=== PATIENT | male | born 1965 | race Two or more races ===

== ENCOUNTER 2025-01-11 17:07 | Emergency (ER) | payer MEDICARE, MEDICAID ==
[~2025-01-11] VITALS: Ht 170.2 cm; Wt 66.0 kg
[2025-01-11] MEDS ORDERED: CALCIUM CHLOR(10%) 100MG/ML 10ML SYRINGE IV ONE (17:08)
[2025-01-11 17:15] VITALS: PULSE 140; RESP 17; O2SAT 100
[2025-01-11] MEDS: MIDAZOLAM DRIP 50 mg/50mL 50 ML IV SCH (17:15)
--- NOTE | 2025-01-11 17:17 | ED.PDOC ---
CPR-HPI HPI Comments 55 y.o male with PMHx of DM, CAD and ESRD, presents to the ED via EMS post ROSC. EMS reports patient is coming from [facility] facility where he currently resides. Staff members found patient unresponsive in his room. On scene, EMS placed patient on AutoPulse initiating CPR and states BG read 22. Patient was intubated, received D10 on scene and a total of 3 epi prior to ED arrival. EMS reports 21 minutes of down time and were able to gain ROSC prior to ED arrival at 1647. Patient's BG now is at 102 and patient is initiating spontaneous respirations, assisted with bagging. Time Seen by MD: 17:08 Reviewed Notes: Nurses Notes, Resident Caregiver Notes, Medications, Allergies Allergies: Coded Allergies: NO KNOWN ALLERGIES (Unverified , 01/11/25) Information Source: Emergency Med Personnel Mode of Arrival: EMS Timing: Minutes Duration: Total time prior hopital: (21 minutes ) Onset: Unknown Available Hx: Unknown Inital rhythm: Undetermined Treatment: CPR, Epinephrine (3) Response: Sustained return of pulse Associated signs and symptoms: Unknown Past Medical History PAST MEDICAL HISTORY: CAD, DM, ESRD Surgical History: Unobtainable Family History Family History: Unobtainable Social History Smoker: Unobtainable Alcohol: Unobtainable Drugs: Unobtainable Lives In: Assisted Care Unable to Obtain due to: Medical Urgency, Other (Obtainable. Patient is intu bated.) Physical Exam General Appearance: Other (Chronically ill-appearing) HEENT: Other (Pupils symmetric and fixed, ETT in place with blood in oropharynx) Neck: Full Range of Motion, Normal Inspection Respiratory: Accessory Muscle Use, Decreased Breath Sounds (Right base), Rhonchi, Other (Initiates spontaneous respirations using accessory muscles, bilateral coarse breath sounds with bagging, diminished breath sounds at right base. Approximate 1.5 cm linear midline open wound with exposed bone fractures.) Cardiovascular: No Edema, No JVD, Regular Rate/Rhythm Breast Exam: Deferred Gastrointestinal: Soft, Other (Nondistended) Genitalia: Other (Unremarkable) Pelvic: Deferred Rectal: Deferred Extremities: Other (Recent left AKA wound clean, dry, with allison in place. No edema.) Neurologic: Other (GCS 3) Cerebellar Function: NOT DONE Reflexes: NOT DONE Skin: Dry, Pallor, Warm, Wounds (Left buttock unstageable approximate 6 x 6 decubitus ulcer) Peripheral Pulses: 2+ carotid (R), 2+ carotid (L); 1+ femoral (R), 1+ femoral (L) Lymphatic: NOT DONE EKG EKG : Comments AFib, rate 133, QRS interval prolonged at 123, normal QTC interval, normal axis, multiple PVCs, lateral ST depression with other nonspecific T changes Was a procedure done? 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 Physician Indication: Hypotension, CVP monitoring, Volume resuscitation Cosmetician performed hand hygien: Yes Maximal sterile barrier precau: Sterile gown, Sterlie gloves Skin Preparation: Chlorhexidine gluconate Skin preparation completely dr: Yes Insertion site: Right, Femoral Central line catheter type: Vbb-[id number] dialysis Number of lumens: 3 Central line exchanged over a: Yes Antiseptic ointment applied to: No Post Assessment: Proper placement Informed consent obtained: No Risks/benefits/alt described: No Differential Dx CPR Differential Diagnosis: Cardiopulmonary arrest, Cardiogenic shock, Electrolyte disorder, Heart Block, Myocardial Infarction, Pneumothorax, Pulmonary Embolus, Respiratory Failure X-Ray, Labs, Meds, VS Vital Signs Date Time Temp Pulse Resp B/P (MAP) Pulse Ox O2 Delivery O2 Flow Rate FiO2 01/11/25 22:12 84 29 86/35 (52) 85 100 01/11/25 22:00 96.4 82 27 86/35 (52) 88 96.4 01/11/25 21:45 96.6 87 28 94/40 (58) 74 96.6 01/11/25 21:30 97.0 97 27 131/75 (93) 72 97.0 01/11/25 21:25 0 Mechanical Ventilator 84 01/11/25 21:15 97.0 93 21 139/73 (95) 92 97.0 01/11/25 21:10 92 01/11/25 21:08 131/75 01/11/25 21:00 97.3 84 31 65/35 (45) 85 97.3 01/11/25 21:00 75/42 01/11/25 20:45 97.5 93 26 68/36 (47) 100 97.5 01/11/25 20:30 97.5 87 28 75/42 (53) 100 97.5 01/11/25 20:15 97.5 88 27 93/61 (72) 100 97.5 01/11/25 20:00 101 27 93/61 (72) 100 01/11/25 19:59 98 01/11/25 19:45 101 26 98/63 (75) 99 01/11/25 19:45 90 27 102/62 (75) 100 60 01/11/25 19:30 88 26 102/62 (75) 100 01/11/25 19:30 102/62 01/11/25 19:30 92 20 100 Mechanical Ventilator+ 100 100 01/11/25 19:15 103 24 109/59 (76) 100 01/11/25 19:00 79 29 100/67 (78) 100 01/11/25 18:45 109 23 110/59 (76) 100 01/11/25 18:45 110/59 01/11/25 18:23 110 01/11/25 18:20 100 80 01/11/25 18:15 94 19 137/62 (87) 100 01/11/25 18:00 109 29 99/61 (74) 100 01/11/25 17:45 119/73 01/11/25 17:45 122 26 119/73 (88) 100 01/11/25 17:40 127 01/11/25 17:38 130 25 128/50 (76) 100 100 01/11/25 17:30 126 23 131/33 (65) 100 01/11/25 17:15 128/50 01/11/25 17:15 140 17 100 Mechanical Ventilator+ 100 100 01/11/25 17:15 97.7 140 17 128/50 (76) 100 97.7 01/11/25 17:11 123 01/11/25 17:07 97.7 129 22 128/50 100 97.7 Lab Test 01/11/25 20:39 01/11/25 19:10 01/11/25 18:24 01/11/25 17:48 Range/Units Lactic Acid Level 16.9 *H 15.0 *H 0.4-2.0 mmol/L Troponin I High Sensitivity 1442 *H 1180 *H 1014 *H </=54 ng/L Blood Gas Specimen Type Arterial Blood Gas Sample Site Right brachial Blood Gas Patient Temperature 37.0 Arterial Blood Date Drawn [id number] Arterial Blood pH 7.189 *L 7.350-7.450 Arterial Blood Partial Pressure CO2 33.2 L 35.0-48.0 mmHg Arterial Blood Partial Pressure O2 140.9 H 83.0-108.0 mmHg Arterial Blood HCO3 12.4 L 21.0-28.0 mmol/L Arterial Blood Oxygen Saturation 98.0 94.0-98.0 % Arterial Blood Base Excess -14.7 L -2.0-3.0 mmol/L Arterial Blood Oxyhemoglobin 97.2 94.0-98.0 % Arterial Blood Carboxyhemoglobin 0.3 L 0.5-1.5 % Arterial Blood Methemoglobin 0.5 0.0-1.5 % Ilan Test N/a Blood Gas Total Hemoglobin 10.00 L 13.5-17.5 g/dL Blood Gas Set Respiration Rate 20.0 Blood Gas Modality Vent - ac FiO2 % 100.0 Blood Gas Tidal Volume 450.0 Blood Gas PEEP or CPAP 5.0 Blood Gas Critical Value Read Back Yes Blood Gas Notified Whom Md los manuel Blood Gas Notified Time [id number] Blood Gas Notified By Rt hyacinth hinton White Blood Count 7.9 4.4-10.8 10^3/uL Red Blood Count 3.05 L 4.5-5.90 10^6/uL Hemoglobin 9.8 L 13.5-17.5 g/dL Hematocrit 32.1 L 41.0-53.0 % Mean Corpuscular Volume 105.1 H 80.0-100.0 fL Mean Corpuscular Hemoglobin 32.1 H 28.0-32.0 pg Mean Corpuscular Hemoglobin Concent 30.6 L 32.0-36.0 g/dL Red Cell Distribution Width 17.8 H 11.8-14.3 % Platelet Count 50 L 140-450 10^3/uL Mean Platelet Volume 11.0 H 6.9-10.8 fL Neutrophils (%) (Auto) 37.0-80.0 % Lymphocytes (%) (Auto) 10.0-50.0 % Monocytes (%) (Auto) 0.0-12.0 % Basophils (%) (Auto) 0.0-2.0 % Neutrophils # (Auto) 1.6-8.6 10 ^3/uL Lymphocytes # (Auto) 0.4-5.4 10 ^3/uL Monocytes # (Auto) 0-1.3 10 ^3/uL Differential Total Cells Counted 100.0 100 Neutrophils % (Manual) 70 37.0-80.0 Band Neutrophils % (Manual) 15 Lymphocytes % (Manual) 12 10.0-50.0 Monocytes % (Manual) 2 0-12 Eosinophils % (Manual) 1 0-7 Basophils % (Manual) 0 0.0-2.0 Metamyelocytes % (manual) 0 Myelocytes % (Manual) 0 Promyelocytes % (Manual) 0 Blast Cells % (Manual) 0 Reactive Lymphocytes 0 Platelet Estimate Decreased Anisocytosis (manual) Slight Macrocytosis Slight Prothrombin Time 16.9 H 9.3-11.8 sec Prothrombin Time INR 1.68 H 0.9-1.15 Activated Partial Thromboplast Time 37.1 H 24.5-34.5 SEC Sodium Level 140 136-145 mmol/L Potassium Level 4.2 3.5-5.1 mmol/L Chloride Level 97 L 98-107 mmol/L Carbon Dioxide Level 16 L 20-31 mmol/L Anion Gap 27 H 5-15 Blood Urea Nitrogen 36 H 9-23 mg/dL Creatinine 3.73 H 0.700-1.30 mg/dL Glomerular Filtration Rate Calc 18 >90 mL/min BUN/Creatinine Ratio 9.7 L 10.0-20.0 Serum Glucose 94 74-106 mg/dL Calcium Level 9.3 8.7-10.4 mg/dL Total Bilirubin 0.9 0.2-1.0 mg/dL Aspartate Amino Transferase (AST) 102 H 13-40 U/L Alanine Aminotransferase (ALT) 47 H 7-40 U/L Alkaline Phosphatase 156 H 46-116 U/L B-Type Natriuretic Peptide > 5000.00 0-100 pg/mL Total Protein 7.0 5.7-8.2 g/dL Albumin 3.0 L 3.2-4.8 g/dL Test 01/11/25 17:25 Range/Units Urine Color Light-orange Yellow Urine Clarity Ex.turbid Clear Urine pH 8.5 5.0-9.0 Urine Specific Ranson 1.014 1.001-1.035 Urine Protein 2+ H Negative Urine Ketones Negative Negative Urine Blood 1+ H Negative /uL Urine Nitrite Negative Negative Urine Bilirubin Negative Negative Urine Urobilinogen Normal Negative mg/dL Urine Leukocyte Esterase Negative Negative /uL Urine RBC 48 0 - 3 /hpf Urine Microscopic WBC 12 H 0-3 /HPF Urine Squamous Epithelial Cells Mod <5 /hpf Urine Amorphous Crystals Few None Seen /hpf Urine Bacteria Few H None Seen /hpf Urine Hyaline Casts Mod 0 - 2 /lpf Urine Mucus Few None Seen Urine Glucose Normal Normal mg/dL Current Medications Medications (Trade) Dose Ordered Sig/Sloan Route Start Time Stop Time Status Last Admin Amiodarone HCl 100 ml @ 600 mls/hr ONCE ONCE IV 01/11/25 17:30 01/11/25 17:39 DC 01/11/25 17:51 Amiodarone HCL/ Dextrose 200 ml @ 33.33 mls/ hr ONCE ONCE IV 01/11/25 17:30 01/11/25 23:30 01/11/25 18:11 Midazolam HCl 50 ml @ 1 mls/hr Q24H IV 01/11/25 18:00 01/11/25 17:15 Sodium Chloride 1,000 ml @ 1,000 mls/hr Q1H ONCE IV 01/11/25 18:00 01/11/25 18:59 DC 01/11/25 18:15 Dopamine HCl/ Dextrose 250 ml @ 12.375 mls/ hr [id number] ONCE IV 01/11/25 21:00 01/12/25 17:12 01/11/25 21:08 Norepinephrine Bitartrate 250 ml @ 3.75 mls/hr Q24H IV 01/11/25 20:55 01/11/25 21:00 PROCEDURE(s): CXRP - CHEST PORTABLE REASON: fulll arrest ORDER NUMBER(s): [id number], ACCESSION NUMBER(s): [id number] EXAM: XY CHEST PORTABLE HISTORY: fulll arrest TECHNIQUE: 1 view of the chest COMPARISON: EKG on DOS: 03/06/22 FINDINGS/IMPRESSION: LUNGS: Large area of hazy alveolar opacification in the right mid to lower lung zone. Additional interstitial opacities in the left lung base. Correlate for infiltrate. MEDIASTINUM: Unremarkable BONES: No acute osseous abnormality OTHER: Endotracheal tube 5.6 cm above the angélica. Enteric tube in the proximal stomach. X-Ray, Labs, Meds, VS Comment 59-year-old male with a history of end-stage renal disease, CAD, diabetes brought in by EMS status post ROSC after being found in full arrest Vitals remarkable for temperature 97, respiratory rate 21, oxygen saturation 92% on high-flow oxygen Exam remarkable for open wound midsternal area with exposed bone fragments, diminished breath sounds on the right, recent left AKA, left buttock unstageable decubitus ulcer Rhythm strip independently interpreted by me: AFib RVR, rate 133, multiple PVC Chest x-ray LUNGS: Large area of hazy alveolar opacification in the right mid to lower lung zone. Additional interstitial opacities in the left lung base. Correlate for infiltrate. OTHER: Endotracheal tube 5.6 cm above the angélica. Enteric tube in the proximal stomach. CBC unremarkable, CMP remarkable for chloride 97, CO2 16, BUN 36, creatinine 3.373, AST 102, ALT 47, alkaline phos 156, BNP greater than 5000, troponin 1014, lactate 15, UA abnormal consistent with UTI, ABG pH 7.189, pCO2 12.4, PO2 140.9 Patient treated with the following in the ED: 1 L 0.9 normal saline IV bolus, amiodarone IV per protocol, cefepime 2 g IV, Levophed infusion Shortly after arrival I discussed the case with Dr. Rogers who was on-call for STEMI, as the EKG obtained by EMS showed some ST-elevation. He reviewed the EMS EKG as well as to consecutive EKGs performed here in the ED on arrival. He did not feel this patient's presentation was consistent with STEMI and recommended medical management. Patient experienced progressive hypotension leading to Saroj asystole during his stay. Code blue was initiated, and the patient received multiple IV push medications including epinephrine, atropine, sodium bicarb, D50 and calcium. Please see code note for details. We were able to establish ROSC. Dopamine infusion was then added. Patient will require ICU admission. Time of 1ST Reevaluation: 17:13 Reevaluation 1ST: Unchanged Patient Education/Counseling: Pt Unresponsive Family Education/Counseling: No Family Present SEPSIS Sepsis Screen Time Sepsis recognized/suspect: 17:30 Physician Orders Chest Portable (01/11/25 17:18) Heplock Iv (01/11/25 17:18) Bleach Boiler Packer (01/11/25 17:18) Blood Pressure (01/11/25 17:18) Pulse Oximetry (01/11/25 17:18) Electrocardigram (01/11/25 17:18) Electrocardigram (01/11/25 18:18) Electrocardigram (01/11/25 20:18) Amiodarone 360mg/200ml Premix (Nexterone (01/11/25 17:30) Ventilator Setup (01/11/25 17:20) Abg W/ Co-Ox (01/11/25 17:31) Respiratory Culture W/ Gs (01/11/25 17:31) Place Og Tube (01/11/25 17:37) Ng/Orogastric Tube To Lis (01/11/25 17:37) Communication Order (01/11/25 17:37) Midazolam Drip 50 Mg/50ml (Versed Drip 5 (01/11/25 18:00) Rass Sedation Scale Q1HR (01/11/25 17:49) Accucheck (01/11/25 17:50) Blood Culture (01/11/25 17:50) Notify Md If Map <65 Or Bp<90 (01/11/25 17:50) If Map<65 Start Vasopressor (01/11/25 17:50) Sepsis Reassesment After Fluid (01/11/25 18:50) * Wound Consult (01/11/25 ) Dopamine 1600mcg/Ml D5w (01/11/25 21:00) Norepinephrine 8 Mg/250ml Kit (Levophed) (01/11/25 20:55) Ventilator Orders (01/11/25 21:55) Chest Xray 1 View (01/11/25 22:17) Cefepime 1gm/50ml (Maxipime 1gm/50ml) (01/11/25 22:30) Vital Signs Date Time Temp Pulse Resp B/P (MAP) Pulse Ox O2 Delivery O2 Flow Rate FiO2 01/11/25 22:12 84 29 86/35 (52) 85 100 01/11/25 22:00 96.4 82 27 86/35 (52) 88 96.4 01/11/25 21:45 96.6 87 28 94/40 (58) 74 96.6 01/11/25 21:30 97.0 97 27 131/75 (93) 72 97.0 01/11/25 21:25 0 Mechanical Ventilator 84 01/11/25 21:15 97.0 93 21 139/73 (95) 92 97.0 01/11/25 21:10 92 01/11/25 21:08 131/75 01/11/25 21:00 97.3 84 31 65/35 (45) 85 97.3 01/11/25 21:00 75/42 01/11/25 20:45 97.5 93 26 68/36 (47) 100 97.5 01/11/25 20:30 97.5 87 28 75/42 (53) 100 97.5 01/11/25 20:15 97.5 88 27 93/61 (72) 100 97.5 01/11/25 20:00 101 27 93/61 (72) 100 01/11/25 19:59 98 01/11/25 19:45 101 26 98/63 (75) 99 01/11/25 19:45 90 27 102/62 (75) 100 60 01/11/25 19:30 88 26 102/62 (75) 100 01/11/25 19:30 102/62 01/11/25 19:30 92 20 100 Mechanical Ventilator+ 100 100 01/11/25 19:15 103 24 109/59 (76) 100 01/11/25 19:00 79 29 100/67 (78) 100 01/11/25 18:45 109 23 110/59 (76) 100 01/11/25 18:45 110/59 01/11/25 18:23 110 01/11/25 18:20 100 80 01/11/25 18:15 94 19 137/62 (87) 100 01/11/25 18:00 109 29 99/61 (74) 100 01/11/25 17:45 119/73 01/11/25 17:45 122 26 119/73 (88) 100 01/11/25 17:40 127 01/11/25 17:38 130 25 128/50 (76) 100 100 01/11/25 17:30 126 23 131/33 (65) 100 01/11/25 17:15 128/50 01/11/25 17:15 140 17 100 Mechanical Ventilator+ 100 100 01/11/25 17:15 97.7 140 17 128/50 (76) 100 97.7 01/11/25 17:11 123 01/11/25 17:07 97.7 129 22 128/50 100 97.7 Laboratory Tests Test 01/11/25 17:48 01/11/25 19:10 01/11/25 20:39 White Blood Count 7.9 10^3/uL (4.4-10.8) Lactic Acid Level 15.0 mmol/L (0.4-2.0) *H 16.9 mmol/L (0.4-2.0) *H Medications Medications Dose Ordered Sig/Sloan Route Start Time Stop Time Status Last Admin Dose Admin Amiodarone HCl 100 ml @ 600 mls/hr ONCE ONCE IV 01/11/25 17:30 01/11/25 17:39 DC 01/11/25 17:51 Amiodarone HCL/ Dextrose 200 ml @ 33.33 mls/ hr ONCE ONCE IV 01/11/25 17:30 01/11/25 23:30 01/11/25 18:11 Dopamine HCl/ Dextrose 250 ml @ 12.375 mls/ hr [id number] ONCE IV 01/11/25 21:00 01/12/25 17:12 01/11/25 21:08 Midazolam HCl 50 ml @ 1 mls/hr Q24H IV 01/11/25 18:00 01/11/25 17:15 Norepinephrine Bitartrate 250 ml @ 3.75 mls/hr Q24H IV 01/11/25 20:55 01/11/25 21:00 Sodium Chloride 1,000 ml @ 1,000 mls/hr Q1H ONCE IV 01/11/25 18:00 01/11/25 18:59 DC 01/11/25 18:15 Reassessment Post Fluid SEPSIS FOCUS EXAM(REASSESSMENT Sepsis reassessment focused exam completed. Date: 01/11/25 Time 23:24 CBC see per kg fluid bolus was not administered due to the patient's history of end-stage renal disease. Aggressive fluid hydration could cause harm. Departure 1 Departure Time of Disposition: 19:00 Impression: Primary Impression: Cardiopulmonary arrest Additional Impressions: Sternal fracture Qualified Codes: S22.20XB - Unspecified fracture of sternum, initial en counter for open fracture Pneumonia Sepsis Elevated troponin Disposition: ADMITTED INPATIENT Admit to: ICU Condition: Critical Critical Care Note Critical Care Time?: Yes (1 hr-critical care time only) Critical care comment: Critical care time including multiple bedside re-evaluations, review of lab and imaging studies, and discussion of the case with the admitting provider. Pat ient is high risk for respiratory, hemodynamic and/or metabolic decompensation. Heart Score Heart Score: Heart Score Response (Comments) Value History N/A 0 EKG N/A 0 Age N/A 0 Risk Factors N/A 0 Troponin N/A 0 Total 0 Stability Stability form required: No I personally scribed for PRACHI BAY MD ([email or web address]) on 01/11/25 at 17:17. Electronically submitted by Angella Rodriguez ([facility]). PRACHI BAY MD Jan 11, 2025 17:17
[2025-01-11] MEDS: MIDAZOLAM DRIP 50 mg/50mL 50 ML IV ONE ×2 (17:20→20:28)
[2025-01-11] MEDS ORDERED: MIDAZOLAM HCL 2MG/2ML 2ml VIAL (1mg/ml) IV ONE (17:30)
[2025-01-11 17:38] VITALS: BP 128/50; PULSE 130; RESP 25; O2SAT 100
[2025-01-11] MEDS: AMIODARONE BOLUS KIT 100 ML IV ONE (17:51)
[2025-01-11] MEDS ORDERED: AMIODARONE BOLUS KIT 100 ML IV ONE (17:51)
[2025-01-11] MEDS: AMIODARONE 360mg/200mL PREMIX 200 ML IV ONE ×3 (17:53→23:11)
[2025-01-11] MEDS: SODIUM CHLORIDE 0.9% 1,000 ML IV ONE (18:15)
[2025-01-11 18:20] VITALS: O2SAT 100
[2025-01-11 18:25] LABS: Anion Gap 27 (5-15); BUN/Creatinine Ratio 9.7 (10.0-20.0); Bilirubin, Total 0.9 mg/dL (0.2-1.0); Calcium 9.3 mg/dL (8.7-10.4); Glucose 94 mg/dL (74-106); Potassium 4.2 mmol/L (3.5-5.1); Sodium 140 mmol/L (136-145); Total Protein 7.0 g/dL (5.7-8.2)
[2025-01-11 18:34] LABS: Alanine Aminotransferase 47 U/L (7-40); Albumin 3.0 g/dL (3.2-4.8); Alkaline Phosphatase 156 U/L (46-116); Blood Urea Nitrogen 36 mg/dL (9-23); Carbon Dioxide 16 mmol/L (20-31); Chloride 97 mmol/L (98-107)
--- NOTE | 2025-01-11 18:37 | DVH ---
EXAM: XY CHEST PORTABLE HISTORY: fulll arrest TECHNIQUE: 1 view of the chest COMPARISON: EKG on DOS: 03/06/22 FINDINGS/IMPRESSION: LUNGS: Large area of hazy alveolar opacification in the right mid to lower lung zone. Additional int erstitial opacities in the left lung base. Correlate for infiltrate. MEDIASTINUM: Unremarkable BONES: No acute osseous abnormality OTHER: Endotracheal tube 5.6 cm above the angélica. Enteric tube in the proximal stomach.
[2025-01-11 18:57] LABS: Hematocrit 32.1 % (41.0-53.0); Hemoglobin 9.8 g/dL (13.5-17.5)
[2025-01-11 18:58] LABS: Mean Corpuscular Hemoglobin 32.1 pg (28.0-32.0); Mean Corpuscular Volume 105.1 fL (80.0-100.0)
[2025-01-11 18:59] LABS: Anisocytosis Slight; Macrocytosis Slight; Total Cells Counted 100.0 (100)
[2025-01-11 19:11] LABS: Urine Amorphous Crystal FEW /hpf (None Seen); Urine Protein, UAD 2+ (Negative)
[2025-01-11 19:30] VITALS: PULSE 92; RESP 20; O2SAT 100
[2025-01-11 19:45] VITALS: BP 102/62; PULSE 90; RESP 27; O2SAT 100
[2025-01-11 19:50] LABS: INR 1.68 (0.9-1.15); Partial Thromboplastin Time 37.1 SEC (24.5-34.5); Prothrombin Time 16.9 sec (9.3-11.8)
[2025-01-11 19:51] LABS: Lactic Acid w/Reflex 15.0 mmol/L (0.4-2.0)
[2025-01-11 20:05] LABS: Base Excess -14.7 mmol/L (-2.0-3.0)
[2025-01-11] MEDS: ATROPINE SULF 0.5 MG/5ML SYR ONE (20:58)
[2025-01-11] MEDS: EPINEPHrine HCL 1 MG/10 ML SYRG ONE (20:58)
[2025-01-11] MEDS: NOREPINEPHRINE 8 MG/250ML KIT 250 ML IV SCH (21:00)
[2025-01-11] MEDS: DOPamine 1600MCG/ML D5W 250 ML IV ONE (21:08)
--- NOTE | 2025-01-11 21:25 | RESUS ---
MADHAVI PEGUERO ASSESSSMENT History of Events History of Events: Pt brought to ER on 01/11/25 s/p ROSC. Pt was intubated by ER on arrival. Pt heart rate dropped down and unable to palpate a pulse. Compressions initiated and MADHAVI PEGUERO called. Initial Information Date: Jan 11, 2025 Time: 20:55 Location of Arrest: ER Arrest Witnessed: Yes CPR started initial time: 20:55 CPR started by whom: EMS Pre-Hospital Care: Pre-Code Care (inpatient) Type of arrest: Cardiac, Respiratory, Adult, Witnessed Spontaneous Respirations: No Pulse Present: No Monitoring: ECG, Pulse Oximetry, Telemetry Airway Ventilation Breathing at Onset: Assisted Oxygen Delivery Method: Mechanical Ventilator Time of first Assisted Ventila: 20:55 Artificial Ventilation: Bag/Endo tube Intubation Size: 7.0 cuffed Intubated orally: Yes Intubated Nasaly: No Tube secured at: 24 (cm @ lip) Comments: Pt was intubated prior to code Circulation Circulation #1: Time: 20:55 Pulse Rate (adult): 0 Blood Pressure Systolic: 0 Blood Pressure Diastolic: 0 Temperature (Fahrenheit): 97.3 (F; rectal) Circulation #2: Time: 20:57 Pulse Rate (adult): 0 Blood Pressure Systolic: 0 Blood Pressure Diastolic: 0 Circulation Comment: PEA Circulation #3: Time: 20:59 Pulse Rate (adult): 0 Blood Pressure Systolic: 0 Blood Pressure Diastolic: 0 Circulation Comment: Asystole Circulation #4: Time: 21:01 Pulse Rate (adult): 0 Blood Pressure Systolic: 0 Blood Pressure Diastolic: 0 Circulation Comment: Asystolef Circulation #5: Time: 21:03 Pulse Rate (adult): 0 Blood Pressure Systolic: 0 Blood Pressure Diastolic: 0 Circulation Comment: PEA Circulation #6: Time: 21:05 Pulse Rate (adult): 84 Blood Pressure Systolic: 139 Blood Pressure Diastolic: 73 Circulation Comment: ROSC Medications & Response Medications and Responses #1: Medication Time: 20:56 ADULT Medications Given ADULT: Epinephrine 1 mg Route of Administration: IV Heart Rate: 0 EKG Rhythm: PEA Blood Pressure Systolic: 0 Blood Pressure Diastolic: 0 Respiratory Rate: 0 Medications and Responses #2: Medication Time: 20:57 ADULT Medications Given ADULT: D50 (amp) Route of Administration: IV Heart Rate: 0 EKG Rhythm: PEA Blood Pressure Systolic: 0 Blood Pressure Diastolic: 0 Respiratory Rate: 0 Medications and Responses #3: Medication Time: 20:58 ADULT Medications Given ADULT: 2 Amps Na Bicarb Route of Administration: IV Heart Rate: 0 EKG Rhythm: PEA Blood Pressure Systolic: 0 Blood Pressure Diastolic: 0 Respiratory Rate: 0 Medications and Responses #4: Medication Time: 20:59 ADULT Medications Given ADULT: Epinephrine 1 mg, Calcium Chloride 10 mL Route of Administration: IV Heart Rate: 0 EKG Rhythm: Asystole Blood Pressure Systolic: 0 Blood Pressure Diastolic: 0 Respiratory Rate: 0 Medications and Responses #5: Medication Time: 21:00 ADULT Medications Given ADULT: Sodium Bacarbinate 50 meq Route of Administration: IV Heart Rate: 0 EKG Rhythm: Asystole Blood Pressure Systolic: 0 Blood Pressure Diastolic: 0 Respiratory Rate: 0 Medications and Responses #6: Medication Time: 21:03 ADULT Medications Given ADULT: Epinephrine 1 mg Route of Administration: IV EKG Rhythm: PEA Blood Pressure Systolic: 0 Blood Pressure Diastolic: 0 Respiratory Rate: 0 Procedure - NG/OG Tube Procedure - NG/OG Tube : Type of gastric tube placed: NG Gastric Tube Location: Left Nare GI Tube Secured: Yes (45) Gastric Tube Suction Type/Desc: Low, Intermittant Gastric Content Description: Bloody NG Tube Patency/Placement: Patent Comment NG placed prior to code Procedure - Central Venous Cat Central venous catheter site: Rt Femoral Comment: TLC placed prior to code Procedure - Glynn Catheter Urinary Catheter Type/Location: Uretheral (Glynn) Comment: Glynn was placed prior to code. No urinary output, pt is ESRD on dialysis. Nurses Notes Corydon Coma Scale Eye Opening: None (1) Corydon Coma Scale Verbal: None (1) Wilbert Coma Scale Motor: None (1) Glascow Total: 3 Pupil Reaction: Non Reactive Bedside Blood Glucose: 58 EKG Rhythm: Sinus Rhythm (SR with PVCs, HR 92 @ 2110) Time Code Ended Time Code Ended: 21:05 Post Arrest Status: Ventilated Outcome of code: Successful Code Team Present: Dr Ivis Fonseca - ROSALIA CHAPPELL; Dewey Adams RN - ER Charge; Jackie Lui RN; Ayde Lui, RN; Adan Lombardi RN - Primary RN; Rohit Lui RN; Christa Lombardi, RT; Indira Lombardi, ERT; Dinh Maloney, ERT; Ang S, ERT, Jazmine Dow, ERT Post Resuscitation Neurologica Comment: 3 ROSC Time of ROSC: 20:55 Pt Meets Criteria for Therapeu: Yes Jackie Peck Jan 11, 2025 21:25
[2025-01-11] MEDS ORDERED: CEFEPIME 1GM/50ML 50 ML IV SCH (22:00)
[2025-01-11 22:12] VITALS: BP 86/35; PULSE 84; RESP 29; O2SAT 85
[2025-01-11] MEDS: CEFEPIME 1GM/50ML 50 ML IV SCH (22:30)
--- NOTE | 2025-01-11 23:03 | DVH ---
CHEST RADIOGRAPH Indication: hypoxia Technique: 1 view Comparison: XY CHEST PORTABLE on DOS: 01/11/25, EKG on DOS: 03/06/22, CXRP on DOS: 02/26/22, EKG on DOS : 02/26/22, EKG on DOS: 02/26/22 FINDINGS: Lines and Tubes: Enteric tube appears retracted with tip in the distal esophagus. Endotracheal tube is unchanged. Lungs/Pleura: Worsening, now diffuse right-sided airspace disease. Persistent small right pleural ef fusion. The left lung is not well assessed due to over penetration and exclusion of the costophrenic angle, but does not appear obviously changed. Cardiomediastinum: Unchanged. Other: Unchanged. IMPRESSION: 1. Worsening right-sided airspace disease with persistent small pleural effusion. The left lung is un changed. 2. Enteric tube has been retracted, recommended least 15 cm advancement. Endotracheal tube is stable.
[2025-01-11] MEDS: CEFEPIME 1GM/50ML 50 ML IV ONE (23:11)
[2025-01-12 00:15] VITALS: BP 73/36; PULSE 64; RESP 20; TEMP 96.6; O2SAT 87
[2025-01-12] MEDS: EPINEPHrine HCL 250 ML IV SCH (00:15)
[2025-01-12] MEDS ORDERED: EPINEPHrine HCL 250 ML IV ONE (00:19)
[2025-01-12] MEDS ORDERED: DEXTROSE 50% SYRINGE 50 ML IV ONE (00:28)
--- NOTE | 2025-01-12 01:30 | RESUS ---
MADHAVI PEGUERO ASSESSSMENT History of Events History of Events: Pt observed to go asystole on tele monitor. No pulses felt. Compressions initiated and CODE BLUE called. Initial Information Date: Jan 12, 2025 Time: 00:19 Location of Arrest: ER Arrest Witnessed: No CPR started initial time: 00:19 CPR started by whom: Hospital Staff Pre-Hospital Care: Pre-Code Care (inpatient) Type of arrest: Cardiac, Respiratory, Adult, Unwitnessed Spontaneous Respirations: No Pulse Present: No Monitoring: ECG, Pulse Oximetry, Telemetry Crash Cart Opened and Supplies: Yes Airway Ventilation Breathing at Onset: Assisted Oxygen Delivery Method: Mechanical Ventilator Artificial Ventilation: Bag/Endo tube Comments: Pt previously intubated prior to code Circulation Circulation #1: Time: 00:19 Pulse Rate (adult): 0 Blood Pressure Systolic: 0 Blood Pressure Diastolic: 0 Temperature (Fahrenheit): 96.8 Circulation Comment: Asystole Circulation #2: Time: 00:21 Pulse Rate (adult): 0 Blood Pressure Systolic: 0 Blood Pressure Diastolic: 0 Circulation Comment: Asystole Circulation #3: Time: 00:23 Pulse Rate (adult): 0 Blood Pressure Systolic: 0 Blood Pressure Diastolic: 0 Circulation Comment: Asystole Circulation #4: Time: 00:25 Pulse Rate (adult): 0 Blood Pressure Systolic: 0 Blood Pressure Diastolic: 0 Circulation Comment: Asystole Circulation #5: Time: 00:27 Pulse Rate (adult): 0 Blood Pressure Systolic: 0 Blood Pressure Diastolic: 0 Circulation Comment: Asystole; TOD Medications & Response Medications and Responses #1: Medication Time: 00:20 ADULT Medications Given ADULT: Epinephrine 1 mg Route of Administration: IV Heart Rate: 0 EKG Rhythm: Asystole Blood Pressure Systolic: 0 Blood Pressure Diastolic: 0 Respiratory Rate: 0 Medications and Responses #2: Medication Time: 00:23 ADULT Medications Given ADULT: Epinephrine 1 mg Route of Administration: IV Heart Rate: 0 EKG Rhythm: Asystole Blood Pressure Systolic: 0 Blood Pressure Diastolic: 0 Respiratory Rate: 0 Medications and Responses #3: Medication Time: 00:25 ADULT Medications Given ADULT: D50 (amp) Route of Administration: IV Medication Comment: FSBS 30 Heart Rate: 0 EKG Rhythm: Asystole Blood Pressure Systolic: 0 Blood Pressure Diastolic: 0 Respiratory Rate: 0 Nurses Notes Willows Coma Scale Eye Opening: None (1) [place]ows Coma Scale Verbal: None (1) [place] Coma Scale Motor: None (1) Pupil Reaction: Non Reactive Bedside Blood Glucose: 30 Time Code Ended Time Code Ended: 00:27 Post Arrest Status: Outcome of code: Unsuccessful Patient pronounced by: [id number] Time patient pronounced: 00:27 Code Team Present: Dr. Ivis Fonseca - ROSALIA CHAPPELL; Dewey Adams, RN - ER Charge; Jackie Lui RN; Adan Lombardi RN; Christa Lombardi RT; Dinh Maloney, ERT; Jazmine Dow, ERT; DIMPLE Rogers Ashley Jan 12, 2025 01:30
--- NOTE | 2025-01-12 10:39 | ECG ---
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
--- NOTE | 2025-01-12 10:39 | ECG ---
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
--- NOTE | 2025-01-12 10:40 | ECG ---
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
--- NOTE | 2025-01-15 09:52 | ECG ---
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
== END 2025-01-12 00:28 ==
LOC: ER 17:07 → EDBD 17:07 → ER 01-12 00:28
DX: S22.20XA Unspecified fracture of sternum, initial encounter for closed fracture (principal); I46.9 Cardiac arrest, cause unspecified; J18.9 Pneumonia, unspecified organism; A41.9 Sepsis, unspecified organism; Z79.899 Other long term (current) drug therapy; X58.XXXA Exposure to other specified factors, initial encounter; Y93.89 Activity, other specified; Y92.89 Other specified places as the place of occurrence of the external cause; Y99.8 Other external cause status
CPT/HCPCS: 36415; 36556; 36600; 71045; 80053; 81001; 82805; 82947; 83605; 83880; 84484; 85007; 85027; 85610; 85730; 87040; 87070; 87077; 87205; 92950; 93005; 96365; 96366; 96368; 96376; 99291; J0169; J0283; J0692; J1265; J2250; J7042; J7060; J0461